=== PATIENT | male | born 2000 | race Caucasian/White ===

== ENCOUNTER 2019-08-24 13:54 | Emergency (ER) | payer OTHER, SELFPAY ==
--- NOTE | ~2019-08-24 | XR_ITS ---
XR toe 1st LT min 2V DATE: 08/24/2019 14:18 INDICATION: Distal first digit injury. TECHNIQUE: 3 views COMPARISON: None FINDINGS: No fracture or dislocation, periosteal reaction or bone destruction. No subcutaneous emphys alia or radiopaque soft tissue foreign body. IMPRESSION: Negative Reviewed, dictated and finalized at location A. IMPRESSION: Negative
--- NOTE | 2019-08-24 14:00 | ED.GENADULT ---
HPI - General Adult General Chief complaint: Extremity Injury, Lower Stated complaint: Left great toe injury Time Seen by Provider: 08/24/19 13:59 Source: patient Mode of arrival: ambulatory Limitations: no limitations History of Present Illness HPI narrative: 19-year-old male patient presents to the [facility] with complaints of left great toe pain. Patient states that he was at work yesterday and that he was closing some metal flaps that way about 20 to 30 pounds each and 1 of them came down on his great toe. Patient states he has been having pain there since. Patient states he feels like a lot of pressure to the toe at this time. Patient has been able to walk on the foot. Patient denies taking anything for pain since the incident happened yesterday. Related Data Home Medications Medication Instructions Recorded Confirmed No Home Medications 08/24/19 08/24/19 Allergies Allergy/AdvReac Type Severity Reaction Status Date / Time Penicillins Allergy Intermediate Difficulty Verified 08/24/19 14:13 Breathing Review of Systems Review of Systems: Narrative: CONSTITUTIONAL: Denies fever, chills, or sweats. EYES: Denies visual changes, redness, or discharge. ENT: Denies rhinorrhea, congestion, sore throat, or otalgia. CARDIOVASCULAR: Denies chest pain, palpitations, or edema. RESPIRATORY: Denies cough or dyspnea. GASTROINTESTINAL: Denies abdominal pain, nausea, vomiting, or diarrhea. GENITOURINARY: Denies dysuria or hematuria. SKIN: Denies rash or itching. MUSCULOSKELETAL: Denies back pain, joint pain, or myalgia. Positive left great toe pain NEUROLOGIC: Denies headache, numbness, or weakness. PSYCHIATRIC: Denies anxiety or depression. [facility] Past Medical History Medical History (Updated 08/24/19 @ 14:29 by ILIR Hernandez) Asthma As a child GERD (gastroesophageal reflux disease) IBS (irritable bowel syndrome) Seasonal allergies Social History Social History (Updated 08/24/19 @ 14:01 by ILIR Hernandez) Smoking status: Current every day smoker Tobacco type: e-cigarettes/vaping Gender identity (if verbalized by the patient): Male Comments At the time of my signature I agree with nursing past medical history, surgical, social, and family history. There is no relevant family history pertinent to the presenting complaint. Exam Narrative: Exam Narrative: GENERAL: Well-appearing, well-nourished, and in no acute distress. HEAD: Normocephalic, atraumatic. EYES: PERRLA and EOMI. ENT: Nares clear, no rhinorrhea or epistaxis. Mucous membranes moist. NECK: Supple. No lymphadenopathy CHEST: Clear to auscultation. No respiratory distress. HEART: Regular rate and rhythm. No murmur heard. Normal peripheral pulses. ABDOMEN: Soft, nontender, nondistended, normal active bowel sounds. EXTREMITIES: Patient able to bear weight and ambulate without pain. No surface trauma, ecchymosis, erythema, lesions, ulcers or break in skin integrity. Patient does appear to have a collection of blood along the cuticle side of the left toenail. There is slight surrounding erythema of the toe but there is no warmth present. The L foot is without obvious asymmetry or deformity when compared to the R foot. No bony step-off, nontender to palpation over the toes, midfoot or hindfoot or sole. Normal plantar/dorsiflexion, inversion/eversion. Distal motor and neurovascular status are intact SKIN: Warm, dry, no rash. NEURO: No focal deficits. Alert and oriented x3. Course Reevaluation(s) Reevaluation #1: Reevaluated patient after x-ray has resulted. Notified him that his x-ray is negative for any acute fractures. Discussed with him that we will go ahead and use a cauterization tool to dayo into the toenail to drain the blood. Patient is aware of this plan at this time. Date: 08/24/19 Time: 14:30 Vital Signs Vital signs: Vital Signs Temperature 36.9 C 08/24/19 14:09 Pulse Rate 78 08/24/19 14:09 Respiratory Rate 16
[2019-08-24 14:09] VITALS: BP 136/53; PULSE 78; RESP 16; TEMP 36.9; O2SAT 100
== END 2019-08-24 14:31 | disposition home or self-care (01) ==
PROVIDERS: Emergency Provider Nurse Practitioner Family
DX: S90.112A Contusion of left great toe without damage to nail, initial encounter (principal); K21.9 Gastro-esophageal reflux disease without esophagitis; K58.9 Irritable bowel syndrome, unspecified; F17.290 Nicotine dependence, other tobacco product, uncomplicated; W22.8XXA Striking against or struck by other objects, initial encounter
CPT/HCPCS: 11740; 73660; 99213; G0463

== ENCOUNTER 2019-09-24 16:36 | Emergency (ER) | payer OTHER, SELFPAY ==
--- NOTE | ~2019-09-24 | CT_ITS ---
EXAMINATION: CT abdomen pelvis w con EXAM DATE: 09/24/2019 18:11 INDICATION: Low abdominal pain. TECHNIQUE: Spiral CT of the abdomen and pelvis was performed following intravenous injection of 100 m L Omnipaque 350. Axial, coronal and sagittal images were reviewed. The dose-length product (DLP) fo r this examination was 211.03 mGy-cm. The exposure was tailored according to patient size (auto mA e xposure control), and iterative reconstruction (ASIR) was used as additional dose reduction technique . There is no prior study for comparison. FINDINGS: The liver, spleen, adrenal glands and pancreas are unremarkable. Gallbladder is unremarkab le. No biliary obstruction. Portal and splenic veins are patent. Kidneys enhance symmetrically. T here is no hydronephrosis. The prostate is unremarkable. The bladder is unremarkable. There is no retroperitoneal or pelvic lymphadenopathy. Patient has malrotation/nonrotation spectrum with the colon in the left side of the abdomen and the s mall bowel on the right side. The appendix is positively identified and normal in appearance, has bee n indicated on the exam The stomach and small bowel are unremarkable. There is expected amount of c olonic stool. No free intraperitoneal gas. The heart is normal in size. There are no pericardial or pleural effusions. The lung bases are unremarkable. The bones are unremarkable. IMPRESSION: 1. No acute intra-abdominal findings. Normal appendix. 2. Congenital malrotation/nonrotation spectrum. Reviewed, dictated and finalized at location A.
[2019-09-24 16:38] VITALS: BP 124/64; PULSE 77; RESP 18; TEMP 36.6; O2SAT 100
[2019-09-24 16:52] LABS: Basophils Percent Auto 0.8 % (0.2-1.2); Eosinophils Absolute Auto 0.1 K/mm3 (0-0.3); Hematocrit 41.8 % (42.0-52.0); Immature Granulocyte Absolute 0.02 K/mm3 (0.00-0.031); Immature Granulocyte Percent A 0.4 % (0-0.5); Lymphocytes Absolute Auto 1.39 K/mm3 (0.9-3.2); Lymphocytes Percent Auto 29.1 % (18.3-44.2); Mean Corpuscular HGB Conc 33.5 g/dl (32-36); Mean Corpuscular Hemoglobin 29.9 pg (26-34); Mean Corpuscular Volume 89.1 fl (80-100); Mean Platelet Volume 10.8 fl (7.4-10.4); Monocytes Absolute Auto 0.3 K/mm3 (0.1-0.6); Monocytes Percent Auto 5.9 % (2.6-8.5); Neutrophils Percent Auto 62.8 % (45.5-73.1); Platelet Count Result 204 k/mm3 (150-375); Red Blood Count 4.69 M/mm3 (4.6-6.20); White Blood Count 4.8 K/mm3 (4.5-10.0)
[2019-09-24 17:04] LABS: Alanine Aminotransferase 14 U/L (4-50); Albumin Level 4.8 g/dL (3.5-5.1); Alkaline Phosphatase 48 U/L (38-126); Aspartate Amino Transferase 28 U/L (17-59); Bilirubin,Total 0.4 mg/dL (0.2-1.3); Blood Urea Nitrogen 8 mg/dL (9-20); Calcium 9.7 mg/dL (8.4-10.2); Carbon Dioxide 28 mmol/L (22-30); Chloride 103 mmol/L (98-107); Estimated CRCL calculation 136 ml/min; Estimated Glomerular Filt Rate > 60; Glucose 95 mg/dL (75-110); Lipase 382 U/L (23-300); Potassium 3.9 mmol/L (3.4-5.0); Sodium 138 mmol/L (137-145)
[2019-09-24 17:08] LABS: Add Urine Microscopic? YES; Appearance Urine Clear (Clear); Bilirubin Urine Negative (Negative); Blood Urine Negative (Negative); Color Urine Yellow (Yellow); Glucose Urine UA Negative (Negative); Ketones Urine Negative (Negative); Leukocyte Esterase Ur Negative LEU/UL (Negative); Mucus Urine Moderate /lpf; Nitrate Urine Negative (Negative); Protein Urine 3+ mg/dL (Negative); RBC Urine 0-2 /hpf (0-2); Specific Grav Ur 1.024 (1.001-1.035); Squamous Epithelial Cell Urine Rare /hpf (Few); Urobilinogen Urine Negative mg/dL (<2.0); WBC Urine 0-3 /hpf
[2019-09-24 17:43] VITALS: BP 118/59; PULSE 68; RESP 18; O2SAT 99
[2019-09-24] MEDS: ONDANSETRON INJ 4 MG/2 ML VIAL IV PUSH (18:37)
[2019-09-24] MEDS: FAMOTIDINE 20 MG/2 ML VIAL IV PUSH (18:37)
[2019-09-24] MEDS: SODIUM CHLORIDE 0.9% IV 1,000 ML 999 ML IV CONT (18:37)
--- NOTE | 2019-09-24 18:37 | ED.ABDPAIN ---
HPI - Abdominal Pain General Chief Complaint: Abdominal Pain Stated Complaint: ABD PAIN Time Seen by Provider: 09/24/19 16:46 Source: patient Mode of arrival: ambulatory Limitations: no limitations History of Present Illness HPI narrative: Patient is a 19-year-old male who presents to emergency department for evaluation of having had 2 episodes of emesis today while at work also noting some mild cramping in the lower abdomen patient notes multiple similar occurrences in the past patient has not taken anything for his symptoms on arrival to emergency department notes that he is beginning to feel better patient denies any current nausea diarrhea rectal bleeding melena or hematemesis Related Data Allergies Allergy/AdvReac Type Severity Reaction Status Date / Time Penicillins Allergy Intermediate Difficulty Verified 09/24/19 16:37 Breathing Review of Systems Review of Systems: All systems reviewed & are unremarkable except as noted in HPI and below PMFSH Past Medical History Medical History Asthma As a child GERD (gastroesophageal reflux disease) IBS (irritable bowel syndrome) Seasonal allergies Social History Social History Smoking status: Current every day smoker Tobacco type: e-cigarettes/vaping Gender identity (if verbalized by the patient): Male Exam Narrative: Exam Narrative: GENERAL: Well-appearing, well-nourished, and in no acute distress. HEAD: Normocephalic, atraumatic. EYES: PERRLA and EOMI. ENT: Nares clear, no rhinorrhea or epistaxis. Mucous membranes moist. CHEST: Clear to auscultation. No respiratory distress. No wheezes rales or rhonchi HEART: Regular rate and rhythm. No murmur heard. Normal peripheral pulses. ABDOMEN: Soft, minimal left lower quadrant tenderness to palpation, nondistended, normal active bowel sounds. EXTREMITIES: Normal range of motion. No edema. SKIN: Warm, dry, no rash. NEURO: No focal deficits. Alert and oriented x3. PSYCH: Normal mood and affect. Course Course Emergency Course: Patient in the room in no distress aware of case findings treatment plan and diagnosis resting comfortably in the room in no distress will be provided with GI follow-up as well as primary care provided with reasons to return is afebrile nontoxic-appearing no high risk changes in the blood work or imaging. Patient was hydrated in the emergency department Vital Signs Vital signs: Vital Signs Temperature 97.9 F 09/24/19 16:38 Pulse Rate 77 09/24/19 16:38 Respiratory Rate 18 09/24/19 16:38 Blood Pressure 124/64 09/24/19 16:38 Pulse Oximetry 100 09/24/19 16:38 Temperature 97.9 F 09/24/19 16:38 Pulse Rate 68 09/24/19 17:43 Respiratory Rate 18 09/24/19 17:43 Blood Pressure 118/59 L 09/24/19 17:43 Pulse Oximetry 99 09/24/19 17:43 MDM - Abdominal Pain MDM Narrative Medical decision making narrative: Patient in the room in no distress aware of case findings treatment plan and diagnosis felt appropriate for outpatient reevaluation nontoxic-appearing no distress upon arrival provided with GI and primary care follow-up agreeing to do so also provided with reasons to return Lab Data Result diagrams: 09/24/19 16:44 09/24/19 16:44 Labs: Lab Results 09/24/19 09/24/19 09/24/19 Range/Units 16:44 16:44 16:52 WBC 4.8 (4.5-10.0) K/mm3 RBC 4.69 (4.6-6.20) M/mm3 Hgb 14.0 (14.0-18.0) g/dL Hct 41.8 L (42.0-52.0) % MCV 89.1 (80-100) fl MCH 29.9 (26-34) pg MCHC 33.5 (32-36) g/dl RDW 13.0 (11.5-14.5) % Plt Count 204 (150-375) k/mm3 MPV 10.8 H (7.4-10.4) fl Immature Gran % (Auto) 0.4 (0-0.5) % Neut % (Auto) 62.8 (45.5-73.1) % Lymph % (Auto) 29.1 (18.3-44.2) % [place] % (Auto) 5.9 (2.6-8.5) % Eos % (Auto) 1.0 (0-4.4) % Baso % (Auto) 0.8 (0.2-1.2) % Lymph
[2019-09-24] MEDS: HYOSCYAMINE SULFATE 0.125 MG TABLET PO (18:43)
[2019-09-24 19:21] VITALS: BP 120/64; PULSE 60; RESP 18; O2SAT 99
== END 2019-09-24 19:23 | disposition home or self-care (01) ==
PROVIDERS: Emergency Provider Emergency Medicine
DX: R10.30 Lower abdominal pain, unspecified (principal); K21.9 Gastro-esophageal reflux disease without esophagitis; K58.9 Irritable bowel syndrome, unspecified; F17.290 Nicotine dependence, other tobacco product, uncomplicated
CPT/HCPCS: 36415; 74177; 80053; 81001; 83690; 85025; 96361; 96374; 96375; 99284; A9270; J2405; J7030; Q9967

== ENCOUNTER 2020-12-02 15:09 | Emergency (ER) | payer OTHER, SELFPAY ==
[2020-12-02 15:19] VITALS: BP 133/75; PULSE 83; RESP 16; TEMP 36.3; O2SAT 99
--- NOTE | 2020-12-02 15:22 | ED.SKABFB ---
HPI - Skin/Abscess/Foreign Bdy General Chief complaint: Skin/Abscess/Foreign Body Stated complaint: Insect bites on feet History of Present Illness HPI narrative: This is a 20-year-old comes in complaining bug bites to his feet patient states that he went hiking approximately 2 days ago and he has had these itchy bites on his feet patient denies taking anything for his symptoms. Related Data Allergies Allergy/AdvReac Type Severity Reaction Status Date / Time Penicillins Allergy Intermediate Difficulty Verified 09/24/19 16:37 Breathing Review of Systems Review of Systems: CONSTITUTIONAL: Denies fever, chills, or sweats. EYES: Denies visual changes, redness, or discharge. ENT: Denies rhinorrhea, congestion, sore throat, or otalgia. CARDIOVASCULAR:Denies chest pain, palpitations, or edema. RESPIRATORY: Denies cough or dyspnea. GASTROINTESTINAL: Denies abdominal pain, nausea, vomiting, or diarrhea. GENITOURINARY: Denies dysuria or hematuria. SKIN: Complains of rash or itching. MUSCULOSKELETAL:Denies back pain, joint pain, or myalgia. NEUROLOGIC: Denies headache, numbness, or weakness. PSYCHIATRIC:Denies anxiety or depression [facility] Past Medical History Medical History (Updated 12/02/20 @ 15:27 by Bhanu Dalal NP) Asthma As a child GERD (gastroesophageal reflux disease) IBS (irritable bowel syndrome) Seasonal allergies Social History Social History Smoking status: Current every day smoker Tobacco type: e-cigarettes/vaping Gender identity (if verbalized by the patient): Male Comments At time as signature, I have reviewed and agree with nursing past medical, social, surgical and family history. Please see nursing chart for further information. There is no relevant family history pertinent to the presenting complaint. Exam Narrative: GENERAL:Well-appearing, well-nourished, and in no acute distress. HEAD:Normocephalic, atraumatic. EYES: PERRLA ENT: Nares clear, CHEST: Clear to auscultation. No respiratory distress. HEART: Regular rate and rhythm.Normal peripheral pulses. ABDOMEN: Soft, nontender, nondistended, normal active bowel sounds. EXTREMITIES: Normal range of motion. No edema. SKIN: Warm, bilateral Feet with erythema small bites that are pinpoint NEURO: No focal deficits. Alert and oriented x3. Course Vital Signs Vital signs: Vital Signs Temperature 97.3 F L 12/02/20 15:19 Pulse Rate 83 12/02/20 15:19 Respiratory Rate 16 12/02/20 15:19 Blood Pressure 133/75 12/02/20 15:19 Pulse Oximetry 99 12/02/20 15:19 Temperature 97.3 F L 12/02/20 15:19 Pulse Rate 83 12/02/20 15:19 Respiratory Rate 16 12/02/20 15:19 Blood Pressure 133/75 12/02/20 15:19 Pulse Oximetry 99 12/02/20 15:19 Discharge Plan Discharge Clinical Impression: Insect bites Qualifiers: Encounter type: initial encounter Site of insect bite: foot Laterality: unspecified laterality Qualified Code(s): S90.869A - Insect bite (nonvenomous), unspecified foot, initial encounter Patient Disposition: Home, Self-Care Condition: Stable Instructions: Antibiotic Form, Insect Bite or Sting (ED) Additional Instructions: Use skin creams/lotion, such as those containing calamine or pramoxine to reduce itchiness Avoid scratching when possible to prevent worsening of the condition and disruption of the skin that could lead to bacterial infection To relieve itching, place a cool washcloth or some ice over the area that itches, rather than scratching Return to the office or seek ER visit if condition is not improving or worsens with fever, swelling, difficulty breathing or swallowing. Make sure you take some Benadryl when you get home. Prescriptions: New loratadine [Claritin] 10 mg tablet 10 mg PO DAILY PRN (Reason: allergy symptoms) Qty: 30 RF: 0 hydrocortisone [Cortisone (hydrocortisone)] 1 % cream 1 applic topical TID PRN (
== END 2020-12-02 15:35 | disposition home or self-care (01) ==
PROVIDERS: Emergency Provider Nurse Practitioner Family
DX: S90.862A Insect bite (nonvenomous), left foot, initial encounter (principal); S90.861A Insect bite (nonvenomous), right foot, initial encounter; W57.XXXA Bitten or stung by nonvenomous insect and other nonvenomous arthropods, initial encounter; K21.9 Gastro-esophageal reflux disease without esophagitis; F17.200 Nicotine dependence, unspecified, uncomplicated
CPT/HCPCS: 99213; G0463

== ENCOUNTER 2021-02-09 07:18 | Emergency (ER) | payer OTHER, SELFPAY ==
--- NOTE | ~2021-02-09 | XR_ITS ---
EXAMINATION: XR chest 2V DATE: 02/09/2021 07:45 INDICATION: Midsternal chest pain TECHNIQUE: PA and lateral views of the chest are obtained. COMPARISON: 09/04/2017 FINDINGS: The lungs are free of acute opacities. There is no pleural effusion or pneumothorax. The ca rdiomediastinal silhouette is normal. The visualized bones and soft tissues are unremarkable. IMPRESSION: 1. No acute cardiopulmonary abnormality. Reviewed, dictated and finalized at location A.
[2021-02-09 07:22] VITALS: BP 144/73; PULSE 74; RESP 31; TEMP 36.6; O2SAT 100
--- NOTE | 2021-02-09 07:26 | ECG_ITS ---
Measurements Intervals [place] Rate: 64 P: 60 CO: 157 QRS: 89 QRSD: 92 T: 69 QT: 352 QTc: 365 Interpretive Statements SINUS RHYTHM ST ELEVATION IN ANTEROLATERAL LEADS- PROBABLY EARLY REPOLARIZATION ABNORMALITY BASELINE ARTIFACT- II, III, AVF, V3-V6 BORDERLINE ECG Electronically Signed On 02-09-2021 11:16:20 CDT by Chidi Mcintosh D.O.
[2021-02-09 07:35] LABS: Basophils Percent Auto 0.6 % (0.2-1.2); Eosinophils Absolute Auto 0.1 K/mm3 (0-0.3); Eosinophils Percent Auto 1.3 % (0-4.4); Hematocrit 43.3 % (42.0-52.0); Hemoglobin 14.4 g/dL (14.0-18.0); Immature Granulocyte Absolute 0.02 K/mm3 (0.00-0.031); Immature Granulocyte Percent A 0.3 % (0-0.5); Lymphocytes Absolute Auto 2.91 K/mm3 (0.9-3.2); Lymphocytes Percent Auto 43.5 % (18.3-44.2); Mean Corpuscular HGB Conc 33.3 g/dl (32-36); Mean Corpuscular Hemoglobin 30.5 pg (26-34); Mean Corpuscular Volume 91.7 fl (80-100); Mean Platelet Volume 10.4 fl (7.4-10.4); Monocytes Absolute Auto 0.5 K/mm3 (0.1-0.6); Neutrophils Absolute Auto 3.2 K/mm3 (1.3-6.7); Neutrophils Percent Auto 47.3 % (45.5-73.1); Platelet Count Result 184 k/mm3 (150-375); Red Blood Count 4.72 M/mm3 (4.6-6.20); Red Cell Distribution Width 12.6 % (11.5-14.5); White Blood Count 6.7 K/mm3 (4.5-10.0)
[2021-02-09 07:44] LABS: Anion Gap 8 mmol/L (8-16); Blood Urea Nitrogen 15 mg/dL (9-20); Calcium 9.2 mg/dL (8.4-10.2); Carbon Dioxide 30 mmol/L (22-30); Chloride 101 mmol/L (98-107); Estimated CRCL calculation 119 ml/min; Estimated Glomerular Filt Rate > 60; Glucose 101 mg/dL (65-110); Potassium 3.6 mmol/L (3.4-5.0); Sodium 139 mmol/L (137-145)
[2021-02-09 07:46] LABS: Partial Thromboplastin Time 28.7 SECONDS (22.3-36.8); Prothrombin Time 12.7 Seconds (11.1-14.7)
[2021-02-09 07:56] LABS: Troponin I < 0.012 ng/mL (0.000-0.034)
[2021-02-09] MEDS: KETOROLAC 30 MG/ML VIAL (*BKC) IV PUSH (08:37)
[2021-02-09 08:39] VITALS: BP 117/62; PULSE 71; RESP 16; O2SAT 100
--- NOTE | 2021-02-09 09:32 | ED.CHESTPAIN ---
HPI - Chest Pain General Chief Complaint: Chest Pain Stated Complaint: chest pain Time Seen by Provider: 02/09/21 07:22 History of Present Illness HPI narrative: Patient is a 20-year-old male who presents ER with chest pain. Left side over his pectoralis and radiates to the right side. Feels tingling in nature. No exertional chest discomfort or shortness of breath. Symptoms began after taking a headache off of his dab pen and holding his breath. No loss of consciousness. Has not tried any pain medication. No history of heart disease. Related Data Home Medications Medication Instructions Recorded Confirmed No Home Medications 02/09/21 02/09/21 Allergies Allergy/AdvReac Type Severity Reaction Status Date / Time Penicillins Allergy Intermediate Difficulty Verified 02/09/21 07:25 Breathing Review of Systems Review of Systems: All systems reviewed & are unremarkable except as noted in HPI and below Constitutional: Constitutional: Denies chills, Denies fever(s) and Denies weakness ENT: Denies nasal congestion and Denies sore throat Cardiovascular: Cardiovascular: Reports chest pain, Denies rapid heart rate and Denies radiating jaw, neck or arm pain Respiratory: Respiratory: Denies cough, Denies dyspnea and Denies wheezing Gastrointestinal: Gastrointestinal: Denies abdominal pain, Denies nausea and Denies vomiting PMFSH Past Medical History Medical History (Updated 02/09/21 @ 09:40 by Simone Alexandra MD) Asthma As a child GERD (gastroesophageal reflux disease) IBS (irritable bowel syndrome) Seasonal allergies Surgical History Surgical History (Updated 02/09/21 @ 09:36 by Siomne Alexandra MD) No pertinent past surgical history Social History Social History Smoking status: Current every day smoker Tobacco type: e-cigarettes/vaping Gender identity (if verbalized by the patient): Male Exam Narrative: GENERAL: Well-appearing, well-nourished, and in no acute distress. HEAD: Normocephalic, atraumatic. EYES: PERRL and EOMI. CHEST: Clear to auscultation. No respiratory distress. HEART: Regular rate and rhythm. Normal peripheral pulses. ABDOMEN: Soft, nontender, nondistended. EXTREMITIES: Normal range of motion. No edema. NEURO: Alert and oriented x3. PSYCH: Normal mood and affect. Course Course Emergency Course: Patient informed of results. Resting comfortably pain-free after Toradol. Not felt to be cardiac in nature. Discharge home. Vital Signs Vital signs: Vital Signs Temperature 97.8 F 02/09/21 07:22 Pulse Rate 74 02/09/21 07:22 Respiratory Rate 31 H 02/09/21 07:22 Blood Pressure 144/73 H 02/09/21 07:22 Pulse Oximetry 100 02/09/21 07:22 Temperature 97.8 F 02/09/21 07:22 Pulse Rate 71 02/09/21 08:39 Respiratory Rate 16 02/09/21 08:39 Blood Pressure 117/62 02/09/21 08:39 Pulse Oximetry 100 02/09/21 08:39 MDM - Chest Pain Lab Data Result diagrams: 02/09/21 07:27 02/09/21 07:27 Labs: Lab Results 02/09/21 02/09/21 02/09/21 Range/Units 07:27 07:27 07:27 WBC 6.7 (4.5-10.0) K/mm3 RBC 4.72 (4.6-6.20) M/mm3 Hgb 14.4 (14.0-18.0) g/dL Hct 43.3 (42.0-52.0) % MCV 91.7 (80-100) fl MCH 30.5 (26-34) pg MCHC 33.3 (32-36) g/dl RDW 12.6 (11.5-14.5) % Plt Count 184 (150-375) k/mm3 MPV 10.4 (7.4-10.4) fl Immature Gran % (Auto) 0.3 (0-0.5) % Neut % (Auto) 47.3 (45.5-73.1) % Lymph % (Auto) 43.5 (18.3-44.2) % [place] % (Auto) 7.0 (2.6-8.5) % Eos % (Auto) 1.3 (0-4.4) % Baso % (Auto) 0.6 (0.2-1.2) % Lymph # (Auto) 2.91 (0.9-3.2) K/mm3 [place] # (Auto) 0.5 (0.1-0.6) K/mm3 Eos # (Auto) 0.1 (0-0.3) K/mm3 Baso # (Auto) 0.0 (0.0-0.1) K/mm3 Abs Immat Gran (auto) 0.02 (0.00-0.031) K/mm3 Absolute Neuts (auto) 3.2 (1.3-6.7) K/mm3 Absolute Nucleated RBC 0.0 (0.0
[2021-02-09 10:06] VITALS: BP 111/54; PULSE 57; RESP 13; O2SAT 100
== END 2021-02-09 10:07 | disposition home or self-care (01) ==
PROVIDERS: Emergency Provider Emergency Medicine
DX: R07.89 Other chest pain (principal); J45.909 Unspecified asthma, uncomplicated; K21.9 Gastro-esophageal reflux disease without esophagitis; K58.9 Irritable bowel syndrome, unspecified; F17.290 Nicotine dependence, other tobacco product, uncomplicated; R94.31 Abnormal electrocardiogram [ECG] [EKG]
CPT/HCPCS: 36415; 71046; 80048; 84484; 85025; 85610; 85730; 93005; 96374; 99284; J1885

== ENCOUNTER 2021-04-01 14:55 | Outpatient (CLI) | payer OTHER, SELFPAY ==
[2021-04-01 19:43] LABS: Free T4 Free Thyroxine 0.95 ng/mL (0.78-2.19)
== END 2021-04-01 14:56 | disposition home or self-care (01) ==
LOC: ANHLAB 14:57
PROVIDERS: PCP Internal Medicine; Visit Provider Internal Medicine
DX: F41.9 Anxiety disorder, unspecified (principal)
CPT/HCPCS: 36415; 84439; 84443

== ENCOUNTER 2021-04-29 20:42 | Emergency (ER) | payer OTHER, SELFPAY ==
--- NOTE | ~2021-04-29 | XR_ITS ---
EXAMINATION: XR chest 1V portable INDICATION: Cough and shortness of breath TECHNIQUE: Portable AP chest at 2234 hours COMPARISON: 02/09/2021 FINDINGS: The lungs are free of acute opacities. There is no pleural effusion or pneumothorax. The ca rdiomediastinal silhouette is normal. The visualized bones and soft tissues are unremarkable. IMPRESSION: 1. No acute cardiopulmonary abnormality. Reviewed, dictated and finalized at location F. [employer]
[2021-04-29 21:16] VITALS: BP 172/74; PULSE 100; RESP 18; TEMP 37.1; O2SAT 97
[2021-04-29 22:16] VITALS: O2SAT 97
[2021-04-29] MEDS: BENZONATATE 100 MG CAPSULE 200 MG PO (22:55)
--- NOTE | 2021-04-29 23:07 | ED.GENADULT ---
HPI - General Adult General Chief complaint: Upper Respiratory Infection Stated complaint: congestion Time Seen by Provider: 04/29/21 22:20 History of Present Illness HPI narrative: Patient is a 21-year-old gentleman who presents emerged part with chief complaint of cough and viral syndrome. The patient reports his mother is positive for COVID-19 the patient states he has had a headache body aches patient reports he has had a frontal headache with has had a little cough denies shortness of breath denies chest pain. Related Data Allergies Allergy/AdvReac Type Severity Reaction Status Date / Time Penicillins Allergy Intermediate Difficulty Verified 04/01/21 12:46 Breathing Review of Systems Review of Systems: A 10 system review of systems was completed on the patient and is negative except for what is stated in the HPI. Nursing and ancillary documentation was reviewed. [facility] Past Medical History Medical History Asthma As a child GERD (gastroesophageal reflux disease) IBS (irritable bowel syndrome) Seasonal allergies Surgical History Surgical History No pertinent past surgical history Family History Family History Father Alcohol abuse Mother Hypertension Grandparent Breast cancer Hypertension Heart problem Grandparent Heart problem Social History Social History Smoking status: Current every day smoker (uses a vape pen) Tobacco type: e-cigarettes/vaping Second hand tobacco smoke exposure: Yes Alcohol intake: current Alcohol use details: Social Gender identity (if verbalized by the patient): Male Exam Narrative: GENERAL: Well-appearing, well-nourished, and in no acute distress. HEAD: Normocephalic, atraumatic. EYES: PERRLA and EOMI. ENT: Nares clear, no rhinorrhea or epistaxis. Mucous membranes moist. NECK: Supple. CHEST: Clear to auscultation. No respiratory distress. HEART: Regular rate and rhythm. No murmur heard. Normal peripheral pulses. ABDOMEN: Soft, nontender, nondistended, normal active bowel sounds. EXTREMITIES: Normal range of motion. No edema. SKIN: Warm, dry, no rash. NEURO: No focal deficits. Alert and oriented x3. PSYCH: Normal mood and affect. Course Vital Signs Vital signs: Vital Signs Temperature 37.1 C 04/29/21 21:16 Pulse Rate 100 04/29/21 21:16 Respiratory Rate 18 04/29/21 21:16 Blood Pressure 172/74 H 04/29/21 21:16 Pulse Oximetry 97 04/29/21 21:16 Temperature 37.1 C 04/29/21 21:16 Pulse Rate 100 04/29/21 21:16 Respiratory Rate 18 04/29/21 21:16 Blood Pressure 172/74 H 04/29/21 21:16 Pulse Oximetry 97 04/29/21 22:16 Medical Decision Making Vital Signs Vital Signs: Vital Signs Temperature 37.1 C 04/29/21 21:16 Pulse Rate 100 04/29/21 21:16 Respiratory Rate 18 04/29/21 21:16 Blood Pressure 172/74 H 04/29/21 21:16 Pulse Oximetry 97 04/29/21 21:16 Temperature 37.1 C 04/29/21 21:16 Pulse Rate 100 04/29/21 21:16 Respiratory Rate 18 04/29/21 21:16 Blood Pressure 172/74 H 04/29/21 21:16 Pulse Oximetry 97 04/29/21 22:16 Discharge Plan Discharge Clinical Impression: Viral illness, Acute upper respiratory infection Patient Disposition: Home, Self-Care Condition: Stable Instructions: Antibiotic Form, Upper Respiratory Infection (ED), Viral Syndrome (ED) Prescriptions: New benzonatate 200 mg capsule 200 mg PO TID PRN (Reason: cough) Qty: 21 RF: 0 No Action escitalopram oxalate [Lexapro] 5 mg tablet 5 mg PO DAILY Qty: 30 RF: 2 Follow-up/Referrals: Juan David Syed MD [Primary Care Provider] - Time of Disposition: 23:12
[2021-04-30] LABS: SARS-CoV-2 RNA PCR Positive
== END 2021-04-29 23:29 | disposition home or self-care (01) ==
PROVIDERS: Emergency Provider Emergency Medicine; PCP Internal Medicine
DX: U07.1 COVID-19 (principal); J45.909 Unspecified asthma, uncomplicated; K21.9 Gastro-esophageal reflux disease without esophagitis
CPT/HCPCS: 71045; 99283; A9270; C9803; U0003; U0005

== ENCOUNTER 2021-09-01 15:33 | Emergency (ER) | payer OTHER, SELFPAY ==
--- NOTE | ~2021-09-01 | XR_ITS ---
EXAMINATION: XR chest 2V Exam Date/Time: 09/01/2021 17:13 CDT CLINICAL HISTORY: cough, allergies, wheezing Comparison: 04/29/2021, 02/09/2021, 12/24/2014. RESULT: Lines, tubes, and devices: None. Lungs and pleura: Clear. Left posterior costophrenic angle blunting likely represents pleural parenc hymal scarring. Cardiomediastinal silhouette: Stable cardiomediastinal silhouette. Other: No acute osseous or upper abdominal finding. IMPRESSION: No acute cardiopulmonary process Reviewed, dictated and finalized at location K.
[2021-09-01 15:59] VITALS: BP 136/84; PULSE 78; RESP 16; TEMP 36.4; O2SAT 98
--- NOTE | 2021-09-01 17:13 | ED.URI ---
HPI - URI/Sore Throat General Chief Complaint: Upper Respiratory Infection Stated Complaint: allergies Time Seen by Provider: 09/01/21 16:58 Source: patient Mode of arrival: ambulatory Limitations: no limitations History of Present Illness HPI Narrative: Patient is a 21 y/o male who presents to the ED with c/o allergy type symptoms. Patient reports having increased allergy symptoms, including productive cough with clear phlegm, congestion, runny nose, sinus drainage, itchy watery eyes, and chest tightness for the last week and a half. He states he has severe seasonal allergies and typically experiences an acute exacerbation once a year. He has been alternating Zyrtec and Claritin at home. He reports occasional wheezing when outside, but states it improves when he is inside. He does not have an inhaler at home but has used one in the past. No fever, chills, headache, myalgias, abdominal pain, N/V/D. Related Data Allergies Allergy/AdvReac Type Severity Reaction Status Date / Time Penicillins Allergy Intermediate Difficulty Verified 04/01/21 12:46 Breathing Review of Systems Review of Systems: CONSTITUTIONAL: Denies fever, chills EYES: Reports pruritus, discharge. ENT: Reports rhinorrhea, congestion, sinus drainage. CARDIOVASCULAR: Reports chest tightness. Denies chest pain, palpitations, or edema. RESPIRATORY: Reports cough, occasional wheezing. Denies dyspnea. GASTROINTESTINAL: Denies abdominal pain, nausea, vomiting, or diarrhea. MUSCULOSKELETAL: Denies back pain, myalgia. NEUROLOGIC: Denies headache. All systems reviewed & are unremarkable except as noted in HPI and below PMFSH Past Medical History Medical History Asthma As a child GERD (gastroesophageal reflux disease) IBS (irritable bowel syndrome) Seasonal allergies Surgical History Surgical History No pertinent past surgical history Family History Family History Father Alcohol abuse Mother Hypertension Grandparent Breast cancer Hypertension Heart problem Grandparent Heart problem Social History Social History Smoking status: Current every day smoker (uses a vape pen) Tobacco type: e-cigarettes/vaping Second hand tobacco smoke exposure: Yes Alcohol intake: current Alcohol use details: Social Gender identity (if verbalized by the patient): Male Exam Narrative: GENERAL: Well appearing, well-nourished, non-toxic, in no acute distress. HEAD: Normocephalic, atraumatic. EYES: PERRL/EOMI, conjunctivae clear bilaterally. NOSE: Normal, no drainage THROAT: Pharynx clear, no significant erythema, no exudate. MMs moist. NECK: Supple. No adenopathy, no masses. RESPIRATORY: Airway patent, respirations nonlabored. Clear to auscultation bilaterally, no rales, rhonchi. No wheezing noted on exam. CARDIOVASCULAR: Regular rate and rhythm without murmurs, rubs, or gallops. Radial pulses 2+ and equal bilaterally. MUSCULOSKELETAL: Moves all extremities. Strength/ROM intact without gross deformities. SKIN: Warm, dry, normal color. No rashes. NEURO: A&O X3. Speech clear. Cranial nerves II-XII grossly intact. Steady gait. No ataxic movements. PSYCHIATRIC: Appropriate mood and affect. Normal interaction. Course Vital Signs Vital signs: Vital Signs Temperature 97.6 F 09/01/21 15:59 Pulse Rate 78 09/01/21 15:59 Respiratory Rate 16 09/01/21 15:59 Blood Pressure 136/84 09/01/21 15:59 Pulse Oximetry 98 09/01/21 15:59 Temperature 97.6 F 09/01/21 15:59 Pulse Rate 78 09/01/21 15:59 Respiratory Rate 16 09/01/21 20:07 Blood Pressure 136/84 09/01/21 15:59 Pulse Oximetry 98 09/01/21 15:59 MDM - URI/Sore Throat MDM Narrative Medical decision making narrative: Patient presented to ED with report o
[2021-09-01 19:12] LABS: Influenza A QL RT-PCR Negative (Negative); Influenza B QL RT-PCR Negative (Negative); SARS-CoV-2 RNA PCR Negative
[2021-09-01 20:07] VITALS: RESP 16
== END 2021-09-01 20:08 | disposition home or self-care (01) ==
PROVIDERS: Physician Assistant; Emergency Provider Emergency Medicine; PCP Internal Medicine
DX: J30.2 Other seasonal allergic rhinitis (principal); F17.290 Nicotine dependence, other tobacco product, uncomplicated; Z20.822 Contact with and (suspected) exposure to COVID-19
CPT/HCPCS: 71046; 87502; 99283; C9803; U0003; U0005

== ENCOUNTER 2023-06-26 01:31 | Emergency (ER) | payer BC, SELFPAY ==
[2023-06-26 01:34] VITALS: BP 134/76; PULSE 109; RESP 17; TEMP 36.4; O2SAT 95
[2023-06-26 01:41] VITALS: BP 135/89; PULSE 109; RESP 16; O2SAT 97
[2023-06-26 01:44] VITALS: O2SAT 96
[2023-06-26 01:59] VITALS: BP 122/79; PULSE 78; RESP 16; O2SAT 98
--- NOTE | 2023-06-26 03:34 | ED.GENADULT ---
HPI - General Adult General Chief complaint: Allergic Reaction Stated complaint: Hives History of Present Illness HPI narrative: This is a 23-year-old male presenting with hives. Patient says he was out drinking at [employer] and Cokes, fireball, lemon drops, and [place]. the patient then went home and his mother noticed that he had hives over his face and neck. She brought him the hospital for evaluation. The patient states that frequently when he drinks heavily he becomes red and blotchy. He denies any other complaints at this time. When asked the patient would like any medication he stated that like the [employer] he does not believe in medication. Related Data Allergies Allergy/AdvReac Type Severity Reaction Status Date / Time Penicillins Allergy Intermediate Difficulty Verified 06/26/23 01:37 Breathing PMFSH Past Medical History Medical History Asthma As a child GERD (gastroesophageal reflux disease) IBS (irritable bowel syndrome) Seasonal allergies Surgical History Surgical History No pertinent past surgical history Family History Family History Father Alcohol abuse Mother Hypertension Grandparent Breast cancer Hypertension Heart problem Grandparent Heart problem Social History Social History Smoking status: Current every day smoker (uses a vape pen) Tobacco type: e-cigarettes/vaping Second hand tobacco smoke exposure: Yes Alcohol intake: current Alcohol use details: Social Gender identity (if verbalized by the patient): Male Exam Narrative: APPEARANCE: Patient smells of alcohol Head: atraumatic. no swelling of the tongue or lip EYES: EOMI, NOSE: Atraumatic NECK: Trachea midline RESPIRATORY: No increased rate of breathing, clear to auscultation CARDIOVASCULAR: RRR, ABDOMINAL: Non-distended MUSCULOSKELETAl: No obvious deformities NEURO: Alert. Moving 4/4 extremities SKIN:: patient's face is flushed, hives over his neck and upper back PSYCHIATRIC: Normal affect Course Vital Signs Vital signs: Vital Signs Temperature 97.6 F 06/26/23 01:34 Pulse Rate 109 H 06/26/23 01:34 Respiratory Rate 17 06/26/23 01:34 Blood Pressure 134/76 06/26/23 01:34 Pulse Oximetry 95 06/26/23 01:34 Oxygen Delivery Room Air 06/26/23 01:34 Temperature 97.6 F 06/26/23 01:34 Pulse Rate 78 06/26/23 01:59 Respiratory Rate 16 06/26/23 01:59 Blood Pressure 122/79 06/26/23 01:59 Pulse Oximetry 98 06/26/23 01:59 Oxygen Delivery Room Air 06/26/23 01:44 Medical Decision Making MDM Narrative Medical decision making narrative: -Course: this is a 23-year-old male presenting intoxicated with hives and facial flushing. This is alcohol flushing reaction. Patient declined any medication. Patient discharged. -DDX includes but is not limited to: allergic reaction, alcohol flush reaction Vital Signs Vital Signs: Vital Signs Temperature 97.6 F 06/26/23 01:34 Pulse Rate 109 H 06/26/23 01:34 Respiratory Rate 17 06/26/23 01:34 Blood Pressure 134/76 06/26/23 01:34 Pulse Oximetry 95 06/26/23 01:34 Oxygen Delivery Room Air 06/26/23 01:34 Temperature 97.6 F 06/26/23 01:34 Pulse Rate 78 06/26/23 01:59 Respiratory Rate 16 06/26/23 01:59 Blood Pressure 122/79 06/26/23 01:59 Pulse Oximetry 98 06/26/23 01:59 Oxygen Delivery Room Air 06/26/23 01:44 Discharge Plan Discharge Clinical Impression: Cutaneous flushing due to alcohol Patient Disposition: Home, Self-Care Condition: Stable Instructions: Antibiotic Form, Urticaria (ED) Additional Instructions: please drink responsibly Prescriptions: No Action escitalopram oxalate [Lexapro] 5 mg tablet 5 mg PO DAILY Qty: 30
== END 2023-06-26 03:01 | disposition home or self-care (01) ==
LOC: ANHED 01:54
PROVIDERS: Emergency Provider Emergency Medicine; PCP Family Medicine
DX: T51.0X1A Toxic effect of ethanol, accidental (unintentional), initial encounter (principal); R23.2 Flushing; J45.909 Unspecified asthma, uncomplicated; K21.9 Gastro-esophageal reflux disease without esophagitis; K58.9 Irritable bowel syndrome, unspecified; F17.290 Nicotine dependence, other tobacco product, uncomplicated
CPT/HCPCS: 99281